=== PATIENT | female | born 1970 | race Caucasian/White ===

== ENCOUNTER 2017-01-18 12:12 | Emergency (ER) | payer SELFPAY ==
[~2017-01-18] VITALS: Ht 172.7 cm; Wt 93.1 kg
[2017-01-18] MEDS ORDERED: SODIUM CHLORIDE FLUSH 10ML SYR IVF ONE (13:30)
[2017-01-18] MEDS ORDERED: SODIUM CHLORIDE 0.9% 1,000ML IVBOLUS ONE (13:30)
[2017-01-18] MEDS ORDERED: KETOROLAC 30 MG/1 ML IVPush ONE (13:30)
[2017-01-18] MEDS ORDERED: ONDANSETRON 2MG/ML, 2ML IVPush ONE (13:30)
[2017-01-18] MEDS ORDERED: KETOROLAC 30 MG/1 ML ONE (14:02)
[2017-01-18] MEDS ORDERED: ONDANSETRON ODT 4 MG ONE (14:02)
[2017-01-18 14:06] LABS: ASPARTATE AMINO TRANSFERASE 26 U/L (15-37); BLOOD UREA NITROGEN 12 mg/dL (7-18)
[2017-01-18] MEDS ORDERED: ONDANSETRON ODT 4 MG PO ONE (14:30)
[2017-01-18 14:37] LABS: PATH.CAST-FLAG NOT PRESENT; SPERM-FLAG NOT PRESENT; SRC-FLAG NOT PRESENT; XTAL-FLAG NOT PRESENT; YLC-FLAG NOT PRESENT
[2017-01-18 15:28] VITALS: BP 147/89
== END 2017-01-18 15:30 | disposition home or self-care (01) ==
LOC: ED 13:02
DX: R10.2 Pelvic and perineal pain (principal); K59.00 Constipation, unspecified
CPT/HCPCS: 36415; 80053; 81001; 84703; 85025; 85610; 85730; 96374; 99284; J1885; Q0162